=== PATIENT | male | born 1985 | race Two or more races ===

== ENCOUNTER 2018-07-24 00:35 | Emergency (ER) | payer SELFPAY ==
--- NOTE | 2018-07-24 01:11 | ER Report ---
History and Physical Time Seen By MD: 01:11 Hx. of Stated Complaint: PT FELL ON ICE ON SUNDAY AND HAS PAIN ON RIGHT SIDED RIBS TO BACK. PT REPORTS ROLLING OVER IN BED LAST NIGHT AND FELT SOMETHING POP. PAIN HAS BEEN CONSTANT SINCE THEN. HPI/ROS CHIEF COMPLAINT: Right rib pain HISTORY OF PRESENT ILLNESS: This is a 33-year-old male. He slipped on the ice and fell onto an auger. Having right-sided rib pain in the lower ribs laterally. Difficulty taking a deep breath because of pain. Has had prior history of rib fracture in the past and this feels similar. Does not want any narcotic medicines because of history of opioid abuse. He has been using Tylenol and ibuprofen without any good relief. Allergies: Coded Allergies: No Known Drug Allergies (Unverified , 07/24/18) Home Meds Active Scripts Tizanidine Hcl (TIZANIDINE HCL) 4 Mg Tablet, 4 MG PO TID PRN for SPASMS, #20 TAB 0 Refills Prov:YULIYA CASILLAS MD 07/24/18 Ketorolac Tromethamine (KETOROLAC TROMETHAMINE) 10 Mg Tab, 10 MG PO Q6H PRN for PAIN, #12 TAB 0 Refills Prov:YULIYA CASILLAS MD 07/24/18 Reviewed Nurses Notes: Yes Hx Smoking: Yes Smoking Status: Current: Every Day Smoker Hx Substance Use Disorder: No Hx Alcohol Use: No Constitutional Vital Sign - Last 24 Hours 07/24/18 07/24/18 07/24/18 07/24/18 01:05 01:06 01:40 02:00 Temp 98.4 Pulse 73 Resp 20 B/P (MAP) 118/69 (85) 118/69 96/59 (71) 104/68 (80) Pulse Ox 94 O2 Delivery Room Air 07/24/18 07/24/18 02:05 02:20 Pulse 71 Pulse Ox 88 91 Physical Exam Gen.: Alert, no acute distress. Respiratory: He does have pain with deep breaths but good breath sounds. Musculoskeletal: Palpation of the ribs on the right side lateral and anterior seemed to be the most tender. No pain higher up in the ribs. No pain on the spine. Cardiovascular: Normal cap refill in extremities. Regular rate and rhythm. Medical Decision Making EKG/Imaging Imaging CHEST PA LAT INDICATION: Fall, right-sided pain COMPARISON: None available FINDINGS: Frontal and lateral views obtained. The cardiac silhouette is normal in size. No pneumothorax. No definitive pulmonary abnormality. Slight convexity left thoracic scoliosis. There is mild irregularity of the anterior right fourth rib without discrete underlying fracture lucency. Otherwise unremarkable osseous structures. No pleural fluid. IMPRESSION: Age-indeterminate right anterior lateral fourth rib fracture deformity may be chronic given appearance. An acute fracture in this area cannot be entirely excluded. Correlate with site of pain. Otherwise unremarkable chest radiographs. Report Dictated By: Adán Irby MD at 07/24/2018 1:55 AM EXAMINATION: Right rib radiographs HISTORY: Fall, pain COMPARISON: Chest radiograph same day FINDINGS: 2 right rib radiographs obtained. BB marker localizes the site of pain along the right lower chest. The visible lungs are clear. No right rib fracture seen in the area of pain. Irregularity of the right anterolateral fourth rib is present as seen on chest radiograph. Otherwise unremarkable. IMPRESSION: No acute rib fracture in the right lower chest in the area of pain. Right anterolateral fourth rib fracture deformity is favored to be chronic given appearance on these rib x-rays. This finding is better visualized on these rib x-rays compared to the chest radiograph. Report Dictated By: Adán Irby MD at 07/24/2018 1:59 AM ED Course/Re-evaluation ED Course Toradol 60 mg IM injection helped the pain a little bit. Negative x-rays for fracture although there is signs of an old fracture there. Reviewed this with the patient. He will use prescription for Toradol and we did give a prescription for some tizanidine as well. Decision to Disposition Date: Jul 24, 2018 Decision to Disposition Time: 02:15 Depart Departure Latest Vital Signs Vital Signs Date Time Temp Pulse Resp B/P (MAP) Pulse Ox O2 Delivery O2 Flow Rate FiO2 07/24/18 02:20 71 91 07/24/18 02:00 104/68 (80) 07/24/18 01:06 98.4 20 Room Air Impression: Primary Impression: Rib injury Condition: Improved Disposition: HOME OR SELF-CARE New Scripts Tizanidine Hcl (TIZANIDINE HCL) 4 Mg Tablet 4 MG PO TID PRN for SPASMS, #20 TAB 0 Refills Prov: YULIYA CASILLAS MD 07/24/18 Ketorolac Tromethamine (KETOROLAC TROMETHAMINE) 10 Mg Tab 10 MG PO Q6H PRN for PAIN, #12 TAB 0 Refills Prov: YULIYA CASILLAS MD 07/24/18 Patient Instructions: Rib Contusion (ED) Additional Instructions: Take Toradol 10mg, one every 6 hours as needed for pain. Take with food. Do not take other NSAIDs such as Ibuprofen while taking the Toradol Take Tizanidine 4mg tablets, one every 8 hours as needed for muscle spasm and pain. YULIYA CASILLAS MD Jul 24, 2018 01:11
[2018-07-24] MEDS ORDERED: KETOROLAC 60 MG/2 ML VIAL IM ONE (01:15)
[2018-07-24 02:00] VITALS: BP 104/68
--- NOTE | 2018-07-24 02:02 | RADIOLOGY IMAGING REPORT ---
FACILITY: [facility] PATIENT NAME: Babak Chaparro : 1985 MR: [id number] V: [id number] EXAM DATE: ORDERING PHYSICIAN: YULIYA CASILLAS TECHNOLOGIST: Location: [facility] [place] Patient: Babak Chaparro : 1985 Visit/Account:[id number] Date of Sevice: 07/24/2018 CHEST PA LAT INDICATION: Fall, right-sided pain COMPARISON: None available FINDINGS: Frontal and lateral views obtained. The cardiac silhouette is normal in size. No pneumoth orax. No definitive pulmonary abnormality. Slight convexity left thoracic scoliosis. There is mild i rregularity of the anterior right fourth rib without discrete underlying fracture lucency. Otherwise unremarkable osseous structures. No pleural fluid. IMPRESSION: Age-indeterminate right anterior lateral fourth rib fracture deformity may be chronic given appearanc e. An acute fracture in this area cannot be entirely excluded. Correlate with site of pain. Otherwise unremarkable chest radiographs. Report Dictated By: Adán Irby MD at 07/24/2018 1:55 AM Report E-Signed By: Adán Irby MD at 07/24/2018 1:59 AM WSN:[id number]
--- NOTE | 2018-07-24 02:05 | RADIOLOGY IMAGING REPORT ---
FACILITY: PATIENT NAME: Babak Chaparro : 1985 MR: [id number] V: [id number] EXAM DATE: ORDERING PHYSICIAN: YULIYA CASILLAS TECHNOLOGIST: Location: [facility] [place] Patient: Babak Chaparro : 1985 Visit/Account:[id number] Date of Sevice: 07/24/2018 EXAMINATION: Right rib radiographs HISTORY: Fall, pain COMPARISON: Chest radiograph same day FINDINGS: 2 right rib radiographs obtained. BB marker localizes the site of pain along the right lower chest. T he visible lungs are clear. No right rib fracture seen in the area of pain. Irregularity of the right anterolateral fourth rib is present as seen on chest radiograph. Otherwise unremarkable. IMPRESSION: No acute rib fracture in the right lower chest in the area of pain. Right anterolateral fourth rib fracture deformity is favored to be chronic given appearance on these rib x-rays. This finding is better visualized on these rib x-rays compared to the chest radiograph. Report Dictated By: Adán Irby MD at 07/24/2018 1:59 AM Report E-Signed By: Adán Irby MD at 07/24/2018 2:02 AM WSN:[id number]
[2018-07-24] MEDS ORDERED: TIZA-128 PO (02:16)
[2018-07-24] MEDS ORDERED: KET10 PO (02:16)
== END 2018-07-24 02:34 | disposition home or self-care (01) ==
LOC: ER 01:13
DX: R07.81 Pleurodynia (principal); W00.0XXA Fall on same level due to ice and snow, initial encounter
CPT/HCPCS: 71100; 96372; 99283; J1885; 71046